=== PATIENT | male | born 1950 | race Caucasian/White ===

== ENCOUNTER 2022-06-20 16:12 | Inpatient (IN) | payer MEDICARE, OTHER ==
[~2022-06-20] VITALS: Ht 170.2 cm; Wt 86.2 kg
[2022-06-20 17:04] LABS: HEMATOCRIT 36.7 % (36.7-47.1); MEAN CORPUSCULAR HEMOGLOBIN 33.1 uug (23.8-33.4); MEAN CORPUSCULAR VOLUME 99.4 fL (73.0-96.2); PLATELET COUNT (AUTO) 219 K/uL (152-348)
[2022-06-20 17:30] LABS: BILIRUBIN,TOTAL 1.2 mg/dL (0.2-1.0); CREATININE 1.2 mg/dL (0.6-1.3); TOTAL PROTEIN, SERUM 7.7 g/dL (6.4-8.2)
[2022-06-20] MEDS ORDERED: SPIR25TA6 PO (18:26)
[2022-06-20] MEDS ORDERED: FURO80TA3 PO (18:26)
[2022-06-20] MEDS ORDERED: POTA10CA43 PO (18:26)
[2022-06-20] MEDS ORDERED: ASPI81TA31 PO (18:26)
[2022-06-20] MEDS ORDERED: ACET-2154 PO (18:26)
[2022-06-20] MEDS ORDERED: CHOL1CRY2 PO (18:26)
[2022-06-20] MEDS ORDERED: DIGO125T5 PO (18:26)
[2022-06-20] MEDS ORDERED: DOCU100C36 PO (18:26)
[2022-06-20] MEDS ORDERED: ASCO500C18 PO (18:26)
[2022-06-20] MEDS ORDERED: ACET-73 PO (18:26)
[2022-06-20] MEDS ORDERED: ATOR40TA PO (18:26)
[2022-06-20] MEDS ORDERED: MULT-213 PO (18:26)
[2022-06-20] MEDS ORDERED: CARV3.122 PO (18:26)
[2022-06-20] MEDS ORDERED: CLOP75TA15 PO (18:26)
[2022-06-20] MEDS ORDERED: CHOL1CRY2 MC (18:26)
[2022-06-20] MEDS ORDERED: MAGN400O6 PO (18:26)
[2022-06-20] MEDS ORDERED: PANT40TA49 PO (18:26)
[2022-06-20] MEDS ORDERED: SACU1TAB PO (18:26)
[2022-06-20] MEDS ORDERED: NA P133E RC (18:26)
--- NOTE | 2022-06-20 18:48 | NUR ---
Paged Epic Panel for admission. Waiting for Dr Leroy to call back.
[2022-06-20] MEDS ORDERED: CEFTRIAXONE 1 G in IV DEXTROSE 5% 50 ML IV ONE (19:15)
[2022-06-20] MEDS ORDERED: DOXYCYCLINE HYCLATE IV 100 MG in IV DEXTROSE 5% 100 ML IV ONE (19:15)
[2022-06-20] MEDS ORDERED: FUROSEMIDE 20 MG TABLET PO ONE (19:15)
[2022-06-20] MEDS ORDERED: AZITHROMYCIN IV 500 MG in IV DEXTROSE 5% 250 ML IV ONE (19:15)
--- NOTE | 2022-06-20 19:30 | NUR ---
Assumed care of patient from day shift RN. Patient sitting in the chair in the hallway. In no acute distress. Assisted to toilet and back to bed in his room. Awaiting to be admitted. Dr. Leroy already accepted patient for admission.
[2022-06-20] MEDS ORDERED: DOXYCYCLINE HYCLATE 100 MG INJ IV ONE (19:32)
[2022-06-20] MEDS ORDERED: FUROSEMIDE 20 MG TABLET ONE (19:32)
[2022-06-20] MEDS ORDERED: CEFTRIAXONE /D5W 50ML IVPB **ER PYXIS IV ONE (19:32)
[2022-06-20] MEDS ORDERED: FLEET ENEMA 133 ML BOTTLE RC PRN (21:00)
[2022-06-20] MEDS ORDERED: ACETAMINOPHEN 325 MG TABLET PO PRN (21:00)
[2022-06-20] MEDS ORDERED: FUROSEMIDE 20 MG/2 ML VIAL IV SCH (21:00)
[2022-06-20] MEDS ORDERED: MAGNESIUM HYDROXIDE 30 ML LIQUID UDC PO SCH (21:00)
[2022-06-20] MEDS ORDERED: MORPHINE SULFATE 2 MG/1 ML DISP.SYRIN IV PRN (21:00)
--- NOTE | 2022-06-20 21:00 | NUR ---
Pt. admitted to telemetry unit room 311 , under care of Dr. Leroy. Report given to JANICE Blevins. Belongings List completed
[2022-06-20 21:55] VITALS: BP 139/77
[2022-06-20] MEDS: PIPERACILLIN SODIUM/TAZOBACTAM 3.375 G in IV DEXTROSE 5% 50 ML IV SCH (22:00)
[2022-06-21] VITALS: BP 130/65
[2022-06-21] MEDS: TEMAZEPAM 7.5 MG CAPSULE PO PRN ×2 (00:01→21:14)
[2022-06-21] MEDS ORDERED: PIPERACILLIN/TAZOBACTAM/D5W 50 ML IV ONE (01:42)
--- NOTE | 2022-06-21 02:51 | NUR ---
PT REC'D FROM ED H/L ACCIDENTALLY DISLODGED BY PT. SEVERAL ATTEMPTS MADE TO RESTART PT REFUSE.
[2022-06-21 04:00] VITALS: BP 135/65
[2022-06-21] MEDS: PIPERACILLIN SODIUM/TAZOBACTAM 3.375 G in IV DEXTROSE 5% 50 ML IV SCH (06:00)
[2022-06-21 06:44] LABS: HEMATOCRIT 34.2 % (36.7-47.1); MEAN CORPUSCULAR HEMOGLOBIN 33.2 uug (23.8-33.4); MEAN CORPUSCULAR VOLUME 98.1 fL (73.0-96.2); PLATELET COUNT (AUTO) 209 K/uL (152-348)
[2022-06-21] MEDS: PANTOPRAZOLE SODIUM 40 MG TABLET.DR PO SCH (06:44)
--- NOTE | 2022-06-21 07:17 | NUR ---
Patient continue to refuse IV placemrnt and IV meds. text placed to MD by charge nurse
[2022-06-21 07:18] LABS: THYROID STIMULATING HORMONE 1.958 mIU/mL (0.358-3.740)
[2022-06-21 07:36] LABS: DIGOXIN 0.7 ng/mL (0.9-2.0)
[2022-06-21 08:35] VITALS: BP 108/77
[2022-06-21] MEDS: ASCORBIC ACID 500 MG TABLET PO SCH (08:44)
[2022-06-21] MEDS: DIGOXIN 125 MCG TABLET PO SCH (08:44)
[2022-06-21] MEDS: CARVEDILOL 3.125 MG TABLET PO SCH ×2 (08:44→16:51)
[2022-06-21] MEDS: SPIRONOLACTONE 25 MG TABLET PO SCH (08:45)
[2022-06-21] MEDS: MULTIVIT, IRON, MIN NO. 8, FA TABLET PO SCH (08:45)
[2022-06-21] MEDS: ASPIRIN EC 81 MG TABLET.DR PO SCH (08:45)
[2022-06-21] MEDS: CHOLECALCIFEROL 1,000 UNIT TABLET PO SCH (08:45)
[2022-06-21] MEDS: POTASSIUM CHLORIDE 10 MEQ TAB.PRT.SR PO SCH (08:45)
[2022-06-21] MEDS: CLOPIDOGREL 75 MG TABLET PO SCH (08:45)
[2022-06-21 08:54] LABS: BILIRUBIN,TOTAL 1.4 mg/dL (0.2-1.0); CREATININE 1.2 mg/dL (0.6-1.3); PHOSPHOROUS 3.5 mg/dL (2.5-4.9); POTASSIUM 3.7 mmol/L (3.5-5.1); TOTAL PROTEIN, SERUM 7.3 g/dL (6.4-8.2)
[2022-06-21] MEDS ORDERED: Medication Not On Formulary EA (Multivitamins W-Minerals (Multivitamin With Minerals) 1 PO SCH (09:00)
[2022-06-21] MEDS ORDERED: Medication Not On Formulary EA (Ascorbic Acid (Vitamin C) 1 CAP) PO SCH (09:00)
[2022-06-21] MEDS ORDERED: [UNRECOGNIZED DRUG - OTHER] PO SCH (09:00)
[2022-06-21] MEDS ORDERED: CHOLECALCIFEROL PO SCH (09:00)
[2022-06-21] MEDS: FUROSEMIDE 20 MG TABLET PO SCH ×2 (09:53→21:11)
[2022-06-21 10:20] VITALS: BP 109/61
[2022-06-21] MEDS ORDERED: PIPERACILLIN SODIUM/TAZOBACTAM 3.375 G in IV DEXTROSE 5% 50 ML IV SCH (14:00)
[2022-06-21 15:55] VITALS: BP 90/58
[2022-06-21] MEDS ORDERED: FLEET ENEMA 133 ML BOTTLE RC PRN (16:37)
--- NOTE | 2022-06-21 17:38 | NUR ---
PT AOX2. RESTLESS AND CONFUSED WANT TO GO HOME. NO COMPLAIN OF PAIN. AFEBRILE. NO SOB VITALS WNL . ECG SHOW EF - 10%-15%. [employer] NOTIFIED. PT AMBULATORY WITH ASSIST. SELF CARE. MULTIPLE SKIN TEAR ON FRANCES[place] HAND NOTED. FRANCESCA ANKLE EDEMA NOTED. V-PACING ON TELE. CALL LIGHT ON BEDSIDE. WILL ENDORSED TO NOC SHIFT.
[2022-06-21] MEDS: PIPERACILLIN SODIUM/TAZOBACTAM 3.375 G in IV DEXTROSE 5% 100 ML IV SCH (17:54)
[2022-06-21] MEDS: ATORVASTATIN 40 MG TABLET PO SCH ×2 (21:11)
[2022-06-22] VITALS: BP 114/73
[2022-06-22] MEDS: PIPERACILLIN SODIUM/TAZOBACTAM 3.375 G in IV DEXTROSE 5% 100 ML IV SCH ×2 (02:27→11:40)
[2022-06-22 04:00] VITALS: BP 120/83
[2022-06-22] MEDS: PANTOPRAZOLE SODIUM 40 MG TABLET.DR PO SCH (06:08)
[2022-06-22 08:10] VITALS: BP 118/78
[2022-06-22 08:37] LABS: HEMATOCRIT 36.2 % (36.7-47.1); MEAN CORPUSCULAR HEMOGLOBIN 34.1 uug (23.8-33.4); MEAN CORPUSCULAR VOLUME 98.6 fL (73.0-96.2); PLATELET COUNT (AUTO) 199 K/uL (152-348)
[2022-06-22] MEDS: DIGOXIN 125 MCG TABLET PO SCH (09:02)
[2022-06-22] MEDS: ASCORBIC ACID 500 MG TABLET PO SCH (09:02)
[2022-06-22] MEDS: SPIRONOLACTONE 25 MG TABLET PO SCH (09:02)
[2022-06-22] MEDS: CHOLECALCIFEROL 1,000 UNIT TABLET PO SCH (09:02)
[2022-06-22] MEDS: MULTIVIT, IRON, MIN NO. 8, FA TABLET PO SCH (09:02)
[2022-06-22] MEDS: ASPIRIN EC 81 MG TABLET.DR PO SCH (09:02)
[2022-06-22] MEDS: POTASSIUM CHLORIDE 10 MEQ TAB.PRT.SR PO SCH (09:02)
[2022-06-22] MEDS: CLOPIDOGREL 75 MG TABLET PO SCH (09:02)
[2022-06-22] MEDS: FUROSEMIDE 20 MG TABLET PO SCH (09:02)
[2022-06-22] MEDS: CARVEDILOL 3.125 MG TABLET PO SCH ×2 (09:03→17:34)
[2022-06-22 09:15] LABS: CARBON DIOXIDE 33 mmol/L (21-32); CHLORIDE 100 mmol/L (98-107); CREATININE 1.5 mg/dL (0.6-1.3); GLUCOSE 111 mg/dL (74-106); MAGNESIUM 2.1 mg/dL (1.8-2.4); PHOSPHOROUS 3.6 mg/dL (2.5-4.9); POTASSIUM 4.2 mmol/L (3.5-5.1); UREA NITROGEN, BLOOD 25 mg/dL (7-18)
[2022-06-22] MEDS ORDERED: FUROSEMIDE 20 MG/2 ML VIAL IV SCH (09:45)
[2022-06-22] MEDS ORDERED: FUROSEMIDE 20 MG TABLET PO ONE (10:15)
[2022-06-22 11:53] VITALS: BP 120/84
--- NOTE | 2022-06-22 12:15 | NUR ---
pt awake on bed. confused at times. no acute distress noted. established new iv site for antibiotic tx. no complain of pain. call light on bedside. will con to monitor.
[2022-06-22 15:16] VITALS: BP 105/76
--- NOTE | 2022-06-22 17:00 | NUR ---
PT WILL BE [facility] PER CM GOING BACK TO [facility].
[2022-06-22] MEDS: FUROSEMIDE 40 MG TABLET PO SCH (17:34)
--- NOTE | 2022-06-22 19:30 | NUR ---
Received patient sitting on the side of the bed. AAOx1-2 with periods of confusion. In no acute distress. Denies any pain or SOB. V Pacing on tele with HR of 88/min. Needs assessed and attended to. Safety measure initiated and call light within reached.
[2022-06-22 20:00] VITALS: BP 95/67
[2022-06-22] MEDS: ATORVASTATIN 40 MG TABLET PO SCH (20:25)
[2022-06-23] VITALS: BP 100/59
[2022-06-23 04:00] VITALS: BP 110/72
--- NOTE | 2022-06-23 05:47 | NUR ---
In no acute distress. Denies any pain or SOB. V Pacing on tele with HR of 93/min. Needs attended to and met. Safety measure maintained and call light within reached.
[2022-06-23] MEDS: PANTOPRAZOLE SODIUM 40 MG TABLET.DR PO SCH (06:05)
[2022-06-23 08:30] LABS: MEAN CORPUSCULAR HEMOGLOBIN 33.6 uug (23.8-33.4); MEAN CORPUSCULAR VOLUME 98.4 fL (73.0-96.2); PLATELET COUNT (AUTO) 195 K/uL (152-348)
[2022-06-23 08:43] LABS: CARBON DIOXIDE 31 mmol/L (21-32); CHLORIDE 99 mmol/L (98-107); CREATININE 1.7 mg/dL (0.6-1.3); GLUCOSE 105 mg/dL (74-106); PHOSPHOROUS 4.2 mg/dL (2.5-4.9); POTASSIUM 4.4 mmol/L (3.5-5.1); UREA NITROGEN, BLOOD 27 mg/dL (7-18)
[2022-06-23] MEDS: MULTIVIT, IRON, MIN NO. 8, FA TABLET PO SCH (08:51)
[2022-06-23] MEDS: CHOLECALCIFEROL 1,000 UNIT TABLET PO SCH (08:51)
[2022-06-23] MEDS: ASCORBIC ACID 500 MG TABLET PO SCH (08:52)
[2022-06-23] MEDS: CLOPIDOGREL 75 MG TABLET PO SCH (08:52)
[2022-06-23] MEDS: SPIRONOLACTONE 25 MG TABLET PO SCH (08:52)
[2022-06-23] MEDS: FUROSEMIDE 40 MG TABLET PO SCH (08:52)
[2022-06-23] MEDS: ASPIRIN EC 81 MG TABLET.DR PO SCH (08:52)
[2022-06-23] MEDS: POTASSIUM CHLORIDE 10 MEQ TAB.PRT.SR PO SCH (08:52)
[2022-06-23] MEDS: DIGOXIN 125 MCG TABLET PO SCH (08:53)
[2022-06-23] MEDS: CARVEDILOL 3.125 MG TABLET PO SCH (08:53)
[2022-06-23 09:36] LABS: ALANINE AMINOTRANSFERASE 110 U/L (16-63); ALKALINE PHOSPHATASE 87 U/L (50-136); ASPARTATE AMINOTRANSFERASE 166 U/L (15-37); BILIRUBIN,TOTAL 2.7 mg/dL (0.2-1.0); TOTAL PROTEIN, SERUM 7.7 g/dL (6.4-8.2)
[2022-06-23 09:54] LABS: CARBON DIOXIDE 32 mmol/L (21-32); CHLORIDE 99 mmol/L (98-107); CREATININE 1.7 mg/dL (0.6-1.3); GLUCOSE 107 mg/dL (74-106); POTASSIUM 4.3 mmol/L (3.5-5.1); UREA NITROGEN, BLOOD 29 mg/dL (7-18)
[2022-06-23 09:59] LABS: MAGNESIUM 2.1 mg/dL (1.8-2.4); PHOSPHOROUS 4.3 mg/dL (2.5-4.9)
[2022-06-23 11:53] VITALS: BP 95/61
--- NOTE | 2022-06-23 12:53 | NUR ---
D/C PLANNING TO THE CORRECTION AGRICULTURAL PLOW OPERATOR AT 1400 THE PATIENT IS AWARE.
--- NOTE | 2022-06-23 14:27 | NUR ---
CALLED THE [facility] ATTEMPTED TO GIVE REPORT PER THE NUMERICAL CONTROL MACHINE MACHINIST THE RN WHO WILL TAKE REPORT WAS UNAVAILABLE AT THIS TIME
--- NOTE | 2022-06-23 15:03 | NUR ---
PATIENT DISCHARGED PICKED UP BY [facility] BACK TO ON LICENSE OF [facility] IN SATISFACTORY CONDITION WITH ALL HIS PERSONAL BELONGINGS PATIENT REFUSED TO SIGN HIS DISCHARGE PAPERS.
--- NOTE | 2022-06-23 17:32 | NUR ---
CALL RECEIVED FROM SARAH CAMACHO AND REPORT GIVEN TO HIM FOR CONTINUING CARE.
== END 2022-06-23 15:03 | DRG 302 ==
LOC: ER 16:12 → TELE3 20:45
PROVIDERS: ADMIT Nurse Practitioner Acute Care; ATTEND Nurse Practitioner Acute Care
DX: I25.10 Atherosclerotic heart disease of native coronary artery without angina pectoris (principal); I50.43 Acute on chronic combined systolic (congestive) and diastolic (congestive) heart failure; N17.0 Acute kidney failure with tubular necrosis; F03.911 Unspecified dementia, unspecified severity, with agitation; I25.2 Old myocardial infarction; I11.0 Hypertensive heart disease with heart failure; E66.9 Obesity, unspecified; E78.5 Hyperlipidemia, unspecified; E87.5 Hyperkalemia; I42.0 Dilated cardiomyopathy; K59.00 Constipation, unspecified; J44.9 Chronic obstructive pulmonary disease, unspecified; Z79.82 Long term (current) use of aspirin; Z95.810 Presence of automatic (implantable) cardiac defibrillator; F03.90 Unspecified dementia, unspecified severity, without behavioral disturbance, psychotic disturbance, mood disturbance, and anxiety; Z20.822 Contact with and (suspected) exposure to COVID-19; E80.6 Other disorders of bilirubin metabolism; Z98.61 Coronary angioplasty status; Z68.29 Body mass index [BMI] 29.0-29.9, adult
CPT/HCPCS: 36415; 71045; 83550; 83605; 83690; 83735; 84100; 84443; 84484; 85025; 85730; 93005; 93307; A4663; G0378; J0696; J1940; J2543; J3490